=== PATIENT | male | born 2000 | race Hispanic/Latino ===

== ENCOUNTER 2021-02-22 15:11 | Emergency (ER) | payer OTHER ==
[~2021-02-22] VITALS: Ht 180.3 cm; Wt 90.7 kg
[2021-02-22] MEDS ORDERED: PROC5TAB54 PO (19:49)
[2021-02-22] MEDS ORDERED: PROCHLORPERAZINE 10MG/2ML INJ IM ONE (20:00)
[2021-02-22 20:11] VITALS: BP 123/86
[2021-02-22 22:24] VITALS: BP 123/68
== END 2021-02-22 22:25 | disposition home or self-care (01) ==
LOC: EDH 15:11
DX: G44.209 Tension-type headache, unspecified, not intractable (principal); R42 Dizziness and giddiness; R11.2 Nausea with vomiting, unspecified
CPT/HCPCS: 96372; 99283; J0780